=== PATIENT | female | born 1970 | race Caucasian/White ===

== ENCOUNTER → 2022-01-03 | Day surgery (SDC) | payer BC ==
[~2022-01-03] MED LIST: AMLODIPINE BESYL5 MG PO; COLESTIPOL HCL1 GM PO; CRESTOR10 MG PO; DICYCLOMINE HCL10 MG PO; FENTANYL CITRATE/PF 100MCG/2 ML INJ ONE; FISH OIL 1,0001 EACH PO; HYOSCYAMINE SULFATE 0.5 MG/ML INJ ONE; LIDOCAINE HCL 2% LOCAL INJ 5 ML SDV VIAL INJ ONE; MIDAZOLAM HCL 2 MG/2 ML VIAL ONE; OMEPRAZOLE40 MG PO; POVIDONE IODINE 0.05% 0.05 % ML PO ONE; PROPOFOL IV EMULSION 10 MG/ML 20 ML VIAL ONE; PROPOFOL IV EMULSION 50 ML IV ONE; QUETIAPINE FUMA25 MG PO; SERTRALINE HCL100 MG PO
[2022-01-03 12:30] VITALS: BP 118/85
[2022-01-07 11:12] LABS: ENDOMYSIAL ANTIBODIES, IGA Negative (Negative)
== END | disposition home or self-care (01) ==
LOC: OR 08:26
PROVIDERS: ATTEND Internal Medicine Gastroenterology
DX: K29.70 Gastritis, unspecified, without bleeding (principal); D12.5 Benign neoplasm of sigmoid colon; K31.7 Polyp of stomach and duodenum; K51.50 Left sided colitis without complications; K20.90 Esophagitis, unspecified without bleeding; K44.9 Diaphragmatic hernia without obstruction or gangrene; K64.8 Other hemorrhoids; K62.89 Other specified diseases of anus and rectum; Z71.3 Dietary counseling and surveillance; I10 Essential (primary) hypertension; Z71.89 Other specified counseling; Z01.810 Encounter for preprocedural cardiovascular examination; Z79.899 Other long term (current) drug therapy; Z68.25 Body mass index [BMI] 25.0-25.9, adult; Z83.79 Family history of other diseases of the digestive system
CPT/HCPCS: 43239; 45380; 82784; 83516; 83630; 83993; 86256; 87045; 87177; 87324; 87328; 87449; 93005; C9113; J1980; J2001; J2704 ×2; 45378; 45385; J2250; J3010